=== PATIENT | male | born 1975 | race African-American/Black ===

== ENCOUNTER 2022-01-06 18:30 | Emergency (ER) | payer MEDICAID ==
[~2022-01-06] VITALS: Ht 165.1 cm; Wt 75.0 kg
[2022-01-06 18:44] VITALS: BP 171/96
[2022-01-07] MEDS ORDERED: NAPR-681 PO ×2 (06:35)
[2022-01-07] MEDS ORDERED: T3 PO (06:35)
[2022-01-07] MEDS ORDERED: TOPUD PO (10:14)
[2022-01-07] MEDS ORDERED: FAMO40TA70 MT (10:14)
[2022-01-07] MEDS ORDERED: ASPI-1497 MT (10:14)
== END 2022-01-06 22:45 | disposition left against medical advice (07) ==
LOC: ER 18:30
DX: Z53.21 Procedure and treatment not carried out due to patient leaving prior to being seen by health care provider (principal)

== ENCOUNTER 2022-01-07 00:14 | Emergency (ER) | payer MEDICAID ==
[~2022-01-07] VITALS: Ht 185.4 cm; Wt 91.0 kg
[2022-01-07] MEDS ORDERED: HYDROCODONE/ACETAMINOPHEN 5/325MG TABLET PO STA (04:23)
[2022-01-07 04:35] VITALS: BP 107/70
[2022-01-07] MEDS ORDERED: NAPR-681 PO ×2 (06:35)
[2022-01-07] MEDS ORDERED: T3 PO (06:35)
[2022-01-07] MEDS ORDERED: FAMO40TA70 MT (10:14)
[2022-01-07] MEDS ORDERED: TOPUD PO (10:14)
[2022-01-07] MEDS ORDERED: ASPI-1497 MT (10:14)
== END 2022-01-07 07:21 | disposition home or self-care (01) ==
LOC: ER 00:14
DX: S70.01XA Contusion of right hip, initial encounter (principal); Z98.890 Other specified postprocedural states; W01.0XXA Fall on same level from slipping, tripping and stumbling without subsequent striking against object, initial encounter; Y93.01 Activity, walking, marching and hiking; Y92.89 Other specified places as the place of occurrence of the external cause; Y99.8 Other external cause status
CPT/HCPCS: 73502; 99283

== ENCOUNTER 2022-01-07 08:29 | Emergency (ER) | payer MEDICAID ==
[~2022-01-07] VITALS: Ht 160 cm; Wt 77.0 kg
[~2022-01-07 08:29] MED LIST: NAPR-681 PO; T3 PO
[2022-01-07 08:52] VITALS: BP 112/93
[2022-01-07] MEDS ORDERED: ASPI-1497 MT (10:14)
[2022-01-07] MEDS ORDERED: TOPUD PO (10:14)
[2022-01-07] MEDS ORDERED: FAMO40TA70 MT (10:14)
== END 2022-01-07 10:26 | disposition home or self-care (01) ==
LOC: ER 08:29
DX: R53.1 Weakness (principal); M25.559 Pain in unspecified hip; Z59.00 Homelessness unspecified
CPT/HCPCS: 99281

== ENCOUNTER 2022-01-07 13:53 | Emergency (ER) | payer MEDICAID ==
[~2022-01-07] VITALS: Ht 170.2 cm; Wt 75.0 kg
[~2022-01-07 13:53] MED LIST changes: +ASPI-1497 MT; +FAMO40TA70 MT; +TOPUD PO
[2022-01-07 14:04] VITALS: BP 124/79
== END 2022-01-07 15:11 | disposition home or self-care (01) ==
LOC: ER 13:53
DX: Z53.29 Procedure and treatment not carried out because of patient's decision for other reasons (principal); Z59.00 Homelessness unspecified
CPT/HCPCS: 99282